=== PATIENT | male | born 1955 | race Caucasian/White ===

== ENCOUNTER 2023-10-21 14:01 | Emergency (ER) | payer OTHER ==
[~2023-10-21] VITALS: Ht 182.9 cm; Wt 113.4 kg
[2023-10-21] MEDS ORDERED: Lactated Ringer's 1,000 ML IV ONE (14:45)
[2023-10-21] MEDS ORDERED: FentaNYL Citrate 50 MCG/ML 2 ML Injection IV ONE (14:45)
[2023-10-21] MEDS ORDERED: Ondansetron HCl 2 MG / ML 2ML Vial IV ONE (14:50)
[2023-10-21] MEDS ORDERED: Ketorolac Tromethamine 30mg Vial IV ONE (15:50)
[2023-10-21] MEDS ORDERED: Diphth,Pertuss(Acell),Tet Vac 0.5 ML VIAL IM ONE (18:20)
== END 2023-10-21 18:36 | disposition home or self-care (01) ==
LOC: ER 14:01
DX: S01.01XA Laceration without foreign body of scalp, initial encounter (principal); R21 Rash and other nonspecific skin eruption; V03.99XA Pedestrian with other conveyance injured in collision with car, pick-up truck or van, unspecified whether traffic or nontraffic accident, initial encounter
CPT/HCPCS: 70450; 72125; 90715; J1885; J2405; J3010; J7120